=== PATIENT | female | born 1995 | race Two or more races ===

== ENCOUNTER 2019-12-11 02:29 | Emergency (ER) | payer OTHER ==
[~2019-12-11] VITALS: Ht 165.1 cm; Wt 63.5 kg
--- NOTE | 2019-12-11 03:00 | NUR ---
C/O TOOK 3 XANAX & ALCOHOL. PT STATES "I TOOK IT BECAUSE I'M DEPRESSED". PT DENIED SI/HI. PLACED ON MONITOR. VSS
[2019-12-11 03:07] LABS: BASOPHILS % (AUTO) 0.5 % (0.0-2.0); EOSINOPHILS % (AUTO) 0.8 % (0.0-6.0); HEMATOCRIT 41 % (33-45); HEMOGLOBIN 13.6 g/dL (11.5-14.8); LYMPHOCYTES # (AUTO) 3.3 /CMM (0.8-4.8); LYMPHOCYTES % (AUTO) 50.2 % (20.0-44.0); MEAN CORPUSCULAR HGB CONC 33 g/dl (31.0-36.0); MEAN CORPUSCULAR VOLUME 93 fL (82-100); MONOCYTES # (AUTO) 0.4 /CMM (0.1-1.30); MONOCYTES % (AUTO) 6.7 % (2.0-12.0); NEUTROPHILS # (AUTO) 2.7 /CMM (1.8-8.9); NEUTROPHILS % (AUTO) 41.8 % (43.0-81.0); PLATELET COUNT (AUTO) 303 /CMM (150-450); RED BLOOD CELL COUNT(AUTO) 4.44 MIL/uL (4.0-5.2); WHITE BLOOD COUNT (AUTO) 6.5 K/uL (4.3-11.0)
[2019-12-11 03:25] LABS: ALBUMIN 3.9 g/dL (3.4-5.0); BILIRUBIN,DIRECT 0.1 mg/dL (0.0-0.2); BILIRUBIN,TOTAL 0.5 mg/dL (0.2-1.0); CREATININE 0.9 mg/dL (0.6-1.3); POTASSIUM 3.5 mmol/L (3.5-5.1); TOTAL PROTEIN, SERUM 7.8 g/dL (6.4-8.2)
--- NOTE | 2019-12-11 04:27 | NUR ---
URINE COLLECTED AND SENT TO THE LAB
[2019-12-11 04:33] LABS: APPEARANCE,URINE Clear (CLEAR); BILIRUBIN,URINE Negative (NEGATIVE); BLOOD, URINE Trace-intact Ery/uL (NEGATIVE); COLOR,URINE Yellow (YELLOW); KETONES,URINE Negative (NEGATIVE); LEUKOCYTE ESTERASE ,URINE Negative (NEGATIVE); NITRITE, URINE Negative (NEGATIVE); PH,URINE 5.5 (5.0-8.0); PROTEIN,URINE Negative (NEGATIVE); UGLUCOSE Negative (NEGATIVE); UROBILINOGEN,URINE 0.2 EU/dL (0.2)
[2019-12-11 04:58] LABS: BACTERIA,URINE Few /HPF (None Seen); MUCUS,URINE Few /LPF (None Seen); RBC,URINE 0-2 /HPF (0-2); SQUAMOUS EPITHELIAL CELL,UR Few /HPF (None Seen); WBC,URINE 0-2 /HPF (0-3)
--- NOTE | 2019-12-11 05:20 | NUR ---
CALLED [facility] FOR EVALUATION. PER JAS, RECOMMENDED FOR PT TO BE SEEN BY ABAD IN MORNING
--- NOTE | 2019-12-11 05:43 | NUR ---
[employer] [facility] ETA 1HR
--- NOTE | 2019-12-11 06:53 | NUR ---
PT IS AWAKE AND ALERT AND CONSTANTLY REQUESTING TO LEAVE THE HOSPITAL. PT WAS SEEN AND EVALUATED BY DR. TERAN AT THE BED SIDE. PER MD, PT IS MEDICALLY CLEAR FOR DISCHARGE. Written and verbal after care instructions given. Patient verbalizes understanding of instruction. PT IS TRYING TO CALL HER BOYFRIEND TO FIND A RIDE BACK HOME.
--- NOTE | 2019-12-11 07:08 | NUR ---
Patient discharged to home in stable condition. Written and verbal after care instructions given. Patient verbalizes understanding of instruction.
[2019-12-11 07:12] VITALS: BP 122/77
== END 2019-12-11 07:13 | disposition home or self-care (01) ==
LOC: ER 02:31
DX: F32.9 Major depressive disorder, single episode, unspecified (principal); F13.10 Sedative, hypnotic or anxiolytic abuse, uncomplicated; F10.10 Alcohol abuse, uncomplicated; Y90.5 Blood alcohol level of 100-119 mg/100 ml
CPT/HCPCS: 36415; 80048; 80076; 80305; 80307; 80329; 81001; 85025; 99285; G0480; 81000-TC

== ENCOUNTER 2020-05-20 12:14 | Emergency (ER) | payer OTHER ==
[~2020-05-20] VITALS: Ht 165.1 cm; Wt 68.0 kg
[2020-05-20 12:22] VITALS: BP 127/76
[2020-05-20] MEDS ORDERED: ONDANSETRON HCL/PF 4 MG/2 ML VIAL ONE (12:29)
[2020-05-20] MEDS ORDERED: ONDANSETRON HCL/PF 4 MG/2 ML VIAL IM ONE (12:30)
--- NOTE | 2020-05-20 12:35 | NUR ---
Patient discharged to home in stable condition. Written and verbal after care instructions given. Patient verbalizes understanding of instruction. Pt ambulatory with a steady gait
== END 2020-05-20 12:35 | disposition home or self-care (01) ==
LOC: ER 12:19
DX: F10.10 Alcohol abuse, uncomplicated (principal); R11.2 Nausea with vomiting, unspecified; Y90.9 Presence of alcohol in blood, level not specified
CPT/HCPCS: 96372; 99283; J2405